=== PATIENT | female | born 1960 | race Caucasian/White ===

== ENCOUNTER 2017-04-18 20:18 | Emergency (ER) | payer MEDICAID ==
[2017-04-18 20:31] VITALS: BP 139/81; PULSE 87; RESP 18; TEMP 98.6; O2SAT 95
[2017-04-18] MEDS ORDERED: diphenhydrAMINE 25 MG CAP PO ONE (20:36)
[2017-04-18] MEDS ORDERED: predniSONE 20 MG TAB PO ONE (20:37)
[2017-04-18] MEDS ORDERED: FAMOTIDINE 20 MG TAB PO ONE (20:37)
--- NOTE | 2017-04-18 20:41 | EDPHY ---
H & P Time Seen by Provider: 04/18/17 20:28 HPI/ROS: 56-year-old female presents complaining redness, hives itching to her hands and forearms. Rash began about 30 minutes prior to arrival patient cannot think of any new exposures or any exposure to all. She has not tried any medication prior to arrival for this rash. Review of systems As per HPI General no fever no chills no weakness HEENT no eye pain no eye discharge. No eye redness, no sore throat Respiratory no cough, no shortness of breath Cardiac no chest pain, no peripheral edema GI no abdominal pain, no diarrhea, no constipation, no nausea, no vomiting no flank pain, no hematuria, no dysuria Musculoskeletal no myalgias, no joint pain Heme no easy bruising, no easy bleeding Endo no polyuria, no polydipsia Skin positive rashes, no pruritus Neuro no syncope, no dizziness, no headaches Psych is no suicidal ideation, no homicidal ideation Past Medical/Surgical History: Noncontributory Social History: Denies alcohol or drug use Smoking Status: Never smoked Physical Exam: 56-year-old female Alert and oriented in no acute distress nontoxic appearance, afebrile Atraumatic normocephalic Neck no JVD Lungs clear to auscultation, no respiratory distress Heart regular rate and rhythm Extremities no cyanosis clubbing edema Skin-scattered erythematous macule lobe papular rash to hands and forearms No vesicles, no petechiae and no ecchymoses Constitutional: Initial Vital Signs Temperature (C) 37.0 C 04/18/17 20:29 Heart Rate 87 04/18/17 20:29 Respiratory Rate 18 04/18/17 20:29 Blood Pressure 139/81 H 04/18/17 20:29 O2 Sat (%) 95 04/18/17 20:29 O2 Delivery Mode Room Air Allergies/Adverse Reactions: No Known Allergies Allergy (Verified 04/18/17 20:28) Home Medications: Medication Instructions Recorded Herbals/Supplements -Info Only 1 ea PO DAILY 11/22/15 Multivitamins [Multivitamin (*)] 1 each PO DAILY 11/22/15 Vitamin B Complex [B Complex] 1 each PO DAILY 11/22/15 Medical Decision Making ED Course/Re-evaluation: Patient seen and evaluated for rash to hands and forearms that began approximately 30 minutes prior to arrival Differential diagnosis considered Urticaria, toxicodendron, scabies Impression Urticaria Plan Patient given Benadryl 50 mg p. o., prednisone 20 mg p.o., famotidine 20 mg p.o. while in emergency department Advised to continue Benadryl as often as every 6 hours To use cool compresses To return if worsening To follow up with PCP - Data Points Medications Given: Discontinued Medications Diphenhydramine HCl (Benadryl) 50 mg PO EDNOW ONE Stop: 04/18/17 20:37 Last Admin: 04/18/17 20:43 Dose: 50 mg Famotidine (Pepcid) 20 mg PO EDNOW ONE Stop: 04/18/17 20:38 Last Admin: 04/18/17 20:43 Dose: 20 mg Prednisone (Prednisone) 20 mg PO EDNOW ONE Stop: 04/18/17 20:38 Last Admin: 04/18/17 20:43 Dose: 20 mg Departure - Departure Disposition: Home, Routine, Self-Care Clinical Impression: Urticaria Condition: Good Instructions: Urticaria (ED) Additional Instructions: You may take Benadryl(diphenhydramine) every 6 hours as needed for itching, redness. You may apply cool compresses to the rash/itchy area. You were also given one dose of prednisone and famotidine while in the ER. Referrals: Kelli Andujar MD [Primary Care Provider] - As per Instructions
== END 2017-04-18 20:48 | disposition home or self-care (01) ==
LOC: CED 20:18
DX: L50.9 Urticaria, unspecified (principal)

== ENCOUNTER 2017-05-19 01:44 | Emergency (ER) | payer MEDICAID ==
--- NOTE | 2017-05-19 02:17 | EDPHY ---
H & P Time Seen by Provider: 05/19/17 02:00 HPI/ROS: CC: Low back pain HPI: This 56-year-old female presents to emergency department today complaining of low back pain that feels just like her prior herniated disc. She has had problems with herniated disc for the last 10 years. She believes the herniation was at the S1 level in the past. Her pain is now been going on for about 3 days and it is on the lower left side. It is a throbbing pain and sometimes sharp with movement. She is having trouble with her daily activities and sleeping. She has tried [id number] pain medications and over-the- counter herbal and camphor pain patches without significant relief. She has not contacted her primary care provider yet and was thinking of going to her chiropractor. She denies any radiation of the pain, she has no numbness, tingling, foot drop. She has no bowel or bladder dysfunction and no saddle anesthesia. She denies dysuria or hematuria. She denies fever or IV drug use. She has not been ill recently. REVIEW OF SYSTEMS: Constitutional: No fever, no chills. Eyes: No discharge. ENT: No sore throat. Respiratory: No cough, no shortness of breath. Cardiac: No chest pain, no palpitations. Gastrointestinal: No abdominal pain, no vomiting. Genitourinary: No dysuria or hematuria. Musculoskeletal: No leg pain or swelling. Skin: No rashes. Neurological: No headache. No numbness, tingling, weakness or foot drop. Past Medical/Surgical History: PMH: Herniated disc, "I vomited blood but the endoscopy was inconclusive", anemia, post menopausal PSH: Denied FH: Mother from a stroke, Father from a heart attack NKDA MEDS: No prescription medication (Herbs, vitamins) PCP: Kelli Andujar MD Social History: Denies tobacco, ETOH, drug use Smoking Status: Never smoked Physical Exam: General Appearance: Alert, no distress. Eyes: Pupils equal and round no pallor or injection. ENT, Mouth: Mucous membranes are moist. Skin: No rash Respiratory: There are no retractions, lungs are clear to auscultation. Cardiovascular: Regular rate and rhythm. Gastrointestinal: Abdomen is soft and nontender, no masses. Neurological: Awake and alert, sensory and motor exams grossly normal. Good dorsiflexion bilateral great toes. Skin: Warm and dry, no rashes. Musculoskeletal: Neck is supple nontender. TTP left lower back to percussion. Extremities are symmetrical, full range of motion. Psychiatric: Patient is oriented X 3, there is no agitation. Constitutional: Initial Vital Signs Temperature (C) 98.2 F 05/19/17 02:27 Heart Rate 77 05/19/17 02:27 Respiratory Rate 16 05/19/17 02:27 Blood Pressure 132/73 H 05/19/17 02:27 O2 Sat (%) 95 05/19/17 02:27 O2 Delivery Mode Room Air Allergies/Adverse Reactions: No Known Allergies Allergy (Verified 05/19/17 02:27) Home Medications: Medication Instructions Recorded Herbals/Supplements -Info Only 1 ea PO DAILY 11/22/15 Multivitamins [Multivitamin (*)] 1 each PO DAILY 11/22/15 Vitamin B Complex [B Complex] 1 each PO DAILY 11/22/15 Cyclobenzaprine [Flexeril 10 MG 10 mg PO TID PRN #15 tab 05/19/17 (*)] Lidocaine 5% [Lidoderm 5% Patch 1 ea TD DAILY PRN #7 patch 05/19/17 (*)] Medical Decision Making ED Course/Re-evaluation: Patient was seen and examined, vital signs and old records reviewed. Due to the question of prior GI bleed she was given a low dose of Toradol at 15 mg IV push as well as a lower dose of Decadron 4 mg IV push. A lidocaine patch was applied. The patient drove herself here so she was given a take-home pack of [place] and an Rx for Lidocaine patches. Her urinalysis is shows trace LE, negative nitrites, 1-3 RBC and 1-3 WBC. Trace epithelial cells. Culture pending. She does not present as a kidney stone. CT was discussed and declined. No history of recent trauma, therefore plain films were not ordered. There is no neurologic emergency identified and cauda equina syndrome is not suspected. She is afebrile with no history of recent illness or IV drug use therefore epidural abscess is not suspected. There is no rash and shingles is unlikely as well. She should call her primary care provider when the office opens this morning and make a follow-up appointment in the next few days. If symptoms persist or worsen she may need an MRI and further evaluation and treatment. Differential Diagnosis: DDx includes but is not limited to: musculoskeletal strain, herniated disc, kidney stone, UTI/pyelonephritis, shingles; Also considered compression fracture, epidural abscess - Data Points Laboratory Results: 05/19/17 03:20 Urine Color YELLOW Urine Appearance CLEAR Urine pH 6.0 (5.0-7.5) Ur Specific [place] <= 1.005 (1.002-1.030) Urine Protein NEGATIVE (NEGATIVE) Urine Ketones NEGATIVE (NEGATIVE) Urine Blood TRACE H (NEGATIVE) Urine Nitrate NEGATIVE (NEGATIVE) Urine Bilirubin NEGATIVE (NEGATIVE) Urine Urobilinogen 0.2 EU EU (0.2-1.0) Ur Leukocyte Esterase 1+ H (NEGATIVE) Urine RBC 1-3 /hpf /hpf (0-3) Urine WBC 1-3 /hpf /hpf (0-3) Ur Epithelial Cells TRACE /lpf /lpf (NONE-1+) Urine Bacteria TRACE /hpf H /hpf (NONE SEEN) Urine Glucose NEGATIVE (NEGATIVE) Medications Given: Lidocaine (Lidoderm 5%) 1 ea TD DAILY FRANK Stop: 11/15/17 08:59 Last Admin: 05/19/17 02:47 Dose: 1 ea Discontinued Medications Hydrocodone Bitart/Acetaminophen ([place] 5/325mg Prepack#6) 1 btl TAKEHOME EDNOW ONE Stop: 05/19/17 02:40 Last Admin: 05/19/17 03:04 Dose: 1 btl Dexamethasone (Decadron Injection) 4 mg IVP EDNOW ONE Stop: 05/19/17 02:19 Last Admin: 05/19/17 02:41 Dose: 4 mg Ketorolac Tromethamine (Toradol) 15 mg IVP EDNOW ONE Stop: 05/19/17 02:19 Last Admin: 05/19/17 02:41 Dose: 15 mg Departure - Departure Disposition: Home, Routine, Self-Care Clinical Impression: Low back pain Qualifiers: Chronicity: acute Back pain laterality: left Sciatica presence: without sciatica Qualified Code(s): M54.5 - Low back pain Condition: Good Instructions: Hydrocodone/Acetaminophen (By mouth), Lidocaine Patch (On the skin), Acute Low Back Pain (ED) Additional Instructions: Call first thing in the morning to arrange follow up with your primary care provider for further evaluation and treatment. If symptoms persist or worsen you may need an MRI. Return to the ER if increased pain, numbness, tingling, weakness, fever, hematuria or any other concerns. Referrals: Patient,NotPresent [Primary Care Provider] - As per Instructions Stand Alone Forms: Work Excuse Prescriptions: Cyclobenzaprine [Flexeril 10 MG (*)] 10 mg PO TID PRN #15 tab PRN Reason: Spasms Lidocaine 5% [Lidoderm 5% Patch (*)] 1 ea TD DAILY PRN #7 patch PRN Reason: Pain, Moderate
[2017-05-19] MEDS ORDERED: DEXAMETHASONE 4 MG/ML VIAL IVP ONE (02:18)
[2017-05-19] MEDS ORDERED: KETOROLAC 15 MG/1 ML SDV IVP ONE (02:18)
[2017-05-19] MEDS ORDERED: LIDOCAINE 5% 1 EA PATCH TD ONE (02:21)
[2017-05-19] MEDS ORDERED: HYDROCOD/APAP 5/325 PREPACK#6 BTL TAKEHOME ONE (02:39)
[2017-05-19 03:25] LABS: COLOR YELLOW; LEUKOCYTE ESTERASE,URINE 1+ (NEGATIVE); NITRITE,URINE NEGATIVE (NEGATIVE)
[2017-05-19 03:43] LABS: BACTERIA TRACE /hpf (NONE SEEN)
[2017-05-19 04:14] VITALS: BP 141/86; PULSE 76; RESP 18; TEMP 98.6; O2SAT 96
[2017-05-19] MEDS ORDERED: LIDOCAINE 5% 1 EA PATCH TD SCH (09:00)
[2017-05-19] MEDS ORDERED: PATCH REMOVAL 1 EA PATCH TD SCH (21:00)
== END 2017-05-19 04:10 | disposition home or self-care (01) ==
LOC: CED 01:44
DX: M54.5 Low back pain (principal)
CPT/HCPCS: 81003-PO; 81015-PO; 96374; J1100; J1885